=== PATIENT | female | born 1985 | race Hispanic/Latino ===

== ENCOUNTER 2022-02-26 18:55 | Emergency (ER) | payer OTHER ==
[~2022-02-26] VITALS: Ht 167.6 cm; Wt 99.8 kg
[2022-02-26] MEDS ORDERED: ACETAMINOPHEN 500 MG TABLET PO ONE (21:00)
[2022-02-26] MEDS ORDERED: TETANUS/DIPHTHERIA TOXOID [ADULT] 0.5 ML VIAL IM ONE (21:00)
[2022-02-26] MEDS ORDERED: 0.9% NACL 500ML IV.SOLN 500 ML IV ONE (21:30)
[2022-02-26] MEDS ORDERED: CEFAZOLIN SODIUM 1 GM VIAL IVP SCH (21:30)
[2022-02-26] MEDS ORDERED: AMOX1TAB16 PO (22:28)
[2022-02-26] MEDS ORDERED: ACET-2079 PO (22:28)
[2022-02-26 23:32] VITALS: BP 124/58
== END 2022-02-26 23:41 | disposition home or self-care (01) ==
LOC: EDH 18:55
DX: S62.637B Displaced fracture of distal phalanx of left little finger, initial encounter for open fracture (principal); Z98.890 Other specified postprocedural states; W23.0XXA Caught, crushed, jammed, or pinched between moving objects, initial encounter; Y93.89 Activity, other specified; Y92.89 Other specified places as the place of occurrence of the external cause; Y99.8 Other external cause status
CPT/HCPCS: 26725; 73140 ×2; 90471; 90714; 96361; 96374; 99284; J0690; J7040